=== PATIENT | female | born 1960 | race Caucasian/White ===

== ENCOUNTER 2017-04-29 10:57 | Emergency (ER) | payer BC ==
[~2017-04-29] VITALS: Ht 172.7 cm; Wt 65.5 kg
[~2017-04-29 10:57] MED LIST: NORCO 325 MG-51 TAB PO; PRINIVIL20 MG PO; PROAIR HFA0.09 MG/AC IH
[2017-04-29 11:00] VITALS: BP 162/100; TEMP 98.4
[2017-04-29 11:57] LABS: PH 7 (5-8); SQUAMOUS EPITHELIAL 0-2 /hpf; URINE APPEARANCE Clear; URINE BACTERIA Rare /hpf; URINE BILIRUBIN Negative (NEGATIVE); URINE BLOOD 1+ (NEGATIVE); URINE COLOR Yellow; URINE GLUCOSE Negative (NEGATIVE); URINE KETONE Negative (NEGATIVE); URINE UROBILINOGEN Negative (NEGATIVE); URINE WBC 0-2 /hpf
[2017-04-29] MEDS ORDERED: NORCO 325 MG-7.1 TAB PO (12:37)
[2017-04-29 12:50] VITALS: PULSE 79
== END 2017-04-29 12:51 | disposition home or self-care (01) ==
LOC: COL.ER 10:57
PROVIDERS: Physician Assistant
DX: M54.5 Low back pain (principal); R31.9 Hematuria, unspecified; G89.29 Other chronic pain; F17.210 Nicotine dependence, cigarettes, uncomplicated; Q63.0 Accessory kidney

== ENCOUNTER 2018-03-29 09:06 | Emergency (ER) | payer OTHER ==
[~2018-03-29] VITALS: Ht 175.3 cm; Wt 63.6 kg
[~2018-03-29 09:06] MED LIST changes: +NORCO 325 MG-7.1 TAB PO
[2018-03-29 09:10] VITALS: PULSE 96; TEMP 98.2
[2018-03-29] MEDS ORDERED: RT ADVAIR 228 DISKUS IH (09:12)
[2018-03-29] MEDS ORDERED: DIOVAN HCT 25 M1 TAB PO (09:20)
[2018-03-29] MEDS ORDERED: ULTRAM 50MG TAB50 MG PO (10:36)
[2018-03-29 10:52] VITALS: BP 106/73
== END 2018-03-29 10:52 | disposition home or self-care (01) ==
LOC: COL.ER 09:06
DX: S81.811A Laceration without foreign body, right lower leg, initial encounter (principal); I10 Essential (primary) hypertension; Z23 Encounter for immunization; W25.XXXA Contact with sharp glass, initial encounter

== ENCOUNTER → 2021-03-17 | Outpatient (CLI) | payer BC ==
[~2021-03-17] MED LIST changes: +DIOVAN HCT 25 M1 TAB PO; +RT ADVAIR 228 DISKUS IH; +ULTRAM 50MG TAB50 MG PO
== END ==
LOC: COL.RAD 06:55
DX: K76.89 Other specified diseases of liver (principal)
CPT/HCPCS: Q9967